=== PATIENT | female | born 1940 | race Caucasian/White ===

== ENCOUNTER → 2024-09-05 | Outpatient (CLI) | payer MEDICARE, BC, SELFPAY ==
--- NOTE | 2024-09-05 15:28 | NEURO ---
NCS and/or EMG Patient Report Ordering Doctor: Racquel Duque NP DATE OF SERVICE: 09/05/24 Winifred presents electrodiagnostic testing of the right upper limb. She reports intermittent numbness in the hand and pain in the right upper arm. Electrodiagnostic findings: Right median motor nerve demonstrates normal distal latency and amplitude with borderline reduced conduction velocity. Right ulnar motor response within normal limits. Normal right median and right ulnar F?waves. Prolonged right median sensory latency at the wrist. Normal ulnar and radial sensory responses. Needle EMG testing was performed in the right upper limb. All muscles tested showed no evidence of denervation with normal motor unit action potentials. Electrodiagnostic impression: This is an abnormal study in the right upper limb 1. Electrodiagnostic findings suggestive of right-sided median mononeuropathy, consistent with a mild right recurrent carpal tunnel syndrome. 2. No electrodiagnostic evidence is noted for cervical radiculopathy or brachial plexopathy. Multi [employer] Codes Neurology Neurology Interp Codes: 90502-52 Musc test done w/n test comp (interp) and 99953-45 Nrv cndj test 7-8 studies (interp)
== END | disposition home or self-care (01) ==
LOC: PSN 13:56
PROVIDERS: Referring Provider Nurse Practitioner Family; Visit Provider Nurse Practitioner Family
DX: M79.621 Pain in right upper arm (principal); R20.0 Anesthesia of skin; R20.2 Paresthesia of skin
CPT/HCPCS: 95886; 95910